=== PATIENT | male | born 1930 | race Caucasian/White ===

== ENCOUNTER 2017-10-19 16:39 | Emergency (ER) | payer MEDICARE, OTHER ==
[~2017-10-19] VITALS: Ht 177.8 cm; Wt 88.0 kg
[~2017-10-19 16:39] MED LIST: ATOR10 PO; B-COTAB41 PO; ENAL10 PO; LANTUSP SQ; SAW80CAP PO; TRAM50TA PO; VITA200T5 PO; ZOFR4TAB3 SL
[2017-10-19 16:49] VITALS: BP 149/65; PULSE 73; RESP 16; TEMP 98.2; O2SAT 95
[2017-10-19] MEDS ORDERED: STAR60TA PO (17:17)
[2017-10-19] MEDS ORDERED: VITACAP7 PO (17:17)
[2017-10-19] MEDS ORDERED: VITA100T65 PO (17:17)
[2017-10-19] MEDS ORDERED: LISI2.5T3 PO (17:17)
[2017-10-19] MEDS ORDERED: SAWCAP2 PO (17:17)
[2017-10-19] MEDS ORDERED: LANTUS2P SQ (17:17)
[2017-10-19] MEDS ORDERED: ATOR10TA15 PO (17:17)
[2017-10-19] MEDS ORDERED: FURO1TAB62 PO (17:17)
--- NOTE | 2017-10-19 18:49 | PD ---
HPI Chief Complaint: Fall Time Seen by Provider: 17:36 Travel History International Travel<30 days: No Contact w/Intl Traveler<30days: No Traveled to known affect area: No History of Present Illness HPI This is a 87-year-old male who had a mechanical trip and fall in his garage prior to arrival. He has a laceration to his left forehead and right knee. He reports he tripped falling forward landing on the ground. His eyeglasses caused a laceration to his face. He denies loss of consciousness. He is not anticoagulated. He denies headache, visual changes, neck pain, chest pain, shortness breath, abdominal pain, paresthesia or weakness of the extremities. Symptom severity is mild. No aggravating or alleviating factors. PFSH Past Medical History Hx Anticoagulant Therapy: No High Cholesterol: Yes Diabetes: Yes Patient Takes Glucophage: No Hypertension: Yes Immunizations Current: Yes Pancreatitis: Yes (FROM [place] [facility]) Past Surgical History Cholecystectomy: Yes Social History Alcohol Use: No Tobacco Use: No Substance Use: No Allergies-Medications (Allergen,Severity, Reaction): Coded Allergies: No Known Allergies (Verified Adverse Reaction, Unknown, 10/19/17) Reported Meds & Prescriptions Reported Meds & Active Scripts Active Reported Lasix (Furosemide) 20 Mg Tab Unknown Dose PO MOWEFR Lisinopril 2.5 Mg Tab Unknown Dose PO DAILY Starlix (Nateglinide) 60 Mg Tab 60 Mg PO TIDAC Vitamin E 100 Unit Tab 100 Units PO DAILY Saw [place] Extract (Saw [place]-Zinc) 160-15 mg Cap 1 Cap PO DAILY Lantus Inj (Insulin Glargine) 1,000 Unit/10 Ml Vial 20 Units SQ HS B Complex (B-Complex Vitamins) 1 Cap 1 Cap PO DAILY Atorvastatin (Atorvastatin Calcium) 10 Mg Tab 10 Mg PO HS Review of Systems Except as stated in HPI: all other systems reviewed are Neg Physical Exam Narrative GENERAL: Alert and well-appearing 87-year-old male SKIN: Warm and dry. Laceration to the forehead and right lower extremity. Neurovascular tendon injury. No foreign body visualized. HEAD: Normocephalic. Laceration to the forehead. No scalp hematomas. EYES: Pupils equal and round. EOMs intact.. No injection or drainage. ENT: No nasal bleeding or discharge. Mucous membranes pink and moist. NECK: Trachea midline. No JVD. No midline tenderness. CARDIOVASCULAR: Regular rate and rhythm. No chest wall tenderness. RESPIRATORY: No accessory muscle use. Clear to auscultation. Breath sounds equal bilaterally. GASTROINTESTINAL: Abdomen soft, non-tender, nondistended. Hepatic and splenic margins not palpable. MUSCULOSKELETAL: Extremities without clubbing, cyanosis, or edema. No obvious deformities. Pulses stable. Hips are nontender. She can flex and extend bilateral hips and ankles. 2+ DP pulses NEUROLOGICAL: Awake and alert. No obvious cranial nerve deficits. Motor grossly within normal limits. Five out of 5 muscle strength in the arms and legs. Normal speech. PSYCHIATRIC: Appropriate mood and affect; insight and judgment normal. Data Data Last Documented VS Orders Orders Ed Discharge Order (10/19/17 18:50) MDM Medical Decision Making Medical Screen Exam Complete: Yes Emergency Medical Condition: Yes Differential Diagnosis Facial laceration, right knee laceration, contusion, fracture, ICH Narrative Course This is a 87-year-old male who had a mechanical trip and fall in his garage prior to arrival. He has a laceration to his left forehead and right knee. He has a normal neurologic exam. He denies loss of consciousness. He refused all imaging. I discussed at length the risk of missing injuries which could result in permanent disability and possibly . He verbalizes understanding and still refuses images. The patient is alert and oriented. Family is at bedside. Lacerations repaired. Patient tolerated procedure well. Procedures Procedure Narrative LACERATION LOCATION: Left forehead, right knee LENGTH: 2.5 cm, 1.5 cm NUMBER OF STITCHES/AJ: Sharri total REPAIR: The area of the laceration was prepped with Betadine and sterilely draped. The laceration was infiltrated with 1% lidocaine with epi. The wound was copiously irrigated and explored without evidence of foreign body, tendon injury or neurovascular injury. The wound was closed using 5-0 Ethilon, 3-0 Ethilon. This was a single layer repair. A sterile dressing was applied. The patient was advised to keep the dressing clean and dry. Patient tolerated the procedure well. Diagnosis Primary Impression: Facial laceration Qualified Codes: S01.81XA - Laceration without foreign body of other part of head, initial encounter Additional Impression: Laceration of right knee Qualified Codes: S81.011A - Laceration without foreign body, right knee, initial encounter Referrals: Primary Care Physician Additional Instructions: Facial sutures need to come out in 5-7 days. Right knee sutures need to come out in 10 days Apply a thin layer of antibiotic ointment to the areas daily. Follow-up with her primary doctor. Return to the emergency department if he developed new or worsening symptoms Disposition: 01 DISCHARGE HOME Condition: Stable Triny Rinaldi Oct 19, 2017 18:49
== END 2017-10-19 19:10 | disposition home or self-care (01) ==
LOC: PHEFT 16:39
DX: S01.81XA Laceration without foreign body of other part of head, initial encounter (principal); S81.011A Laceration without foreign body, right knee, initial encounter; E78.00 Pure hypercholesterolemia, unspecified; E11.9 Type 2 diabetes mellitus without complications; I10 Essential (primary) hypertension; Z87.19 Personal history of other diseases of the digestive system; Z79.4 Long term (current) use of insulin; W01.0XXA Fall on same level from slipping, tripping and stumbling without subsequent striking against object, initial encounter; Y92.008 Other place in unspecified non-institutional (private) residence as the place of occurrence of the external cause
CPT/HCPCS: 12001; 12011